=== PATIENT | female | born 1955 | race African-American/Black ===

== ENCOUNTER 2017-01-27 17:27 | Emergency (ER) | payer OTHER ==
[2017-01-27 18:03] VITALS: TEMP 98.3; BMI 25.8
[2017-01-27] MEDS ORDERED: diazePAM 5 MG TABLET PO ONE (18:37)
[2017-01-27] MEDS ORDERED: KETOROLAC TROMETHAMINE 60 MG/2 ML VIAL IM ONE (18:37)
--- NOTE | 2017-01-27 18:37 | PDOC ---
[id number] No Limitations - History of Present Illness Initial Comments: 01/27/17 18:52 The patient is a 62 year old female, with a significant past medical history of slipped discs, vertigo, asthma, hypertension, and hyperlipidemia, who presents to the emergency department with back pain for the past 3 days, which exacerbated today. She describes her back as localized on the lower left back, moderate in severity, with radiation down her left lower extremity. She notes that certain movements such as bending over exacerbate her pain, as well as walking. She states that she was walking a few days ago with her family member, which is when the pain started. She denies any fall or trauma. She denies any urinary or bowel incontinence. The patient denies chest pain, shortness of breath, headache and dizziness. Denies fever, chills, nausea, vomit, diarrhea and constipation. Denies dysuria, frequency, urgency and hematuria. Allergies: Gabapentin Past surgical history: Cholecystectomy Social history: Rare alcohol use. Cigarette use (5 daily). No drug use reported. <Blake Terrazas - Last Filed: 01/27/17 18:52> - General History Source: Patient Exam Limitations: No Limitations <Praful Minor - Last Filed: 01/31/17 09:22> - General Chief Complaint: Back Pain Stated Complaint: BACK PAIN Time Seen by Provider: 01/27/17 17:44 Past History <Blake Terrazas - Last Filed: 01/27/17 18:52> - Past Medical History Asthma: Yes Cancer: No Cardiac Disorders: No CVA: No COPD: No Diabetes: No GI Disorders: Yes (GERD) Disorders: No HTN: Yes Hypercholesterolemia: Yes Liver Disease: No Seizures: No Thyroid Disease: No - Surgical History Cholecystectomy: Yes (12/2011) - Immunization History Immunization Up to Date: Yes - Psycho/Social/Smoking Cessation Hx Anxiety: No Suicidal Ideation: No Smoking Status: No Smoking History: Smoker current status UNK Have you smoked in the past 12 months: No Number of Cigarettes Smoked Daily: 20 Information on smoking cessation initiated: No 'Breaking Loose' booklet given: 08/07/16 Hx Alcohol Use: No Drug/Substance Use Hx: No Substance Use Type: Cocaine, Marijuana Hx Substance Use Treatment: No ([facility] 10 yrs ago) <Praful Minor - Last Filed: 01/31/17 09:22> - Past Medical History Allergies/Adverse Reactions: Allergies Allergy/AdvReac Type Severity Reaction Status Date / Time gabapentin AdvReac Mild Swelling Verified 01/27/17 18:03 Home Medications: Ambulatory Orders Atorvastatin Ca [Lipitor] 80 mg PO HS 07/26/14 Cholecalciferol (Vitamin D3) [Vitamin D3] 50,000 unit PO WEEKLY 01/09/16 Zolpidem Tartrate [Ambien] 10 mg PO HS 01/09/16 Diphenhydramine HCl [Benadryl -] 25 mg PO BID PRN #30 capsule MDD 2 05/10/16 Amlodipine Besylate [Norvasc -] 2.5 mg PO DAILY 06/28/16 Cyanocobalamin [Vitamin B12 -] 1,000 mcg PO DAILY 08/07/16 Famotidine [Pepcid] 40 mg PO HS 08/07/16 Omeprazole 20 mg PO DAILY PRN 08/07/16 Meclizine HCl [Antivert -] 12.5 mg PO TID PRN #90 tablet MDD 3 11/06/16 Oxycodone HCl/Acetaminophen [Percocet 10-325 mg Tablet] 1 each PO TID #90 tablet MDD 3 01/03/17 Ibuprofen 800 mg PO TID #30 tablet 01/27/17 Methocarbamol [Robaxin -] 750 mg PO Q8H #30 tablet 01/27/17 Trauma Specific PMHX - Complaint Specific PMHX Arthritis: Yes <Praful Minor - Last Filed: 01/31/17 09:22> Review of Systems - Review of Systems Able to Perform ROS?: Yes Comments:: 01/27/17 18:52 CONSTITUTIONAL: No reported: Fever, Chills, Diaphoresis, Generalized Weakness, Malaise, Loss of Appetite HEENT: No reported: Rhinorrhea, Nasal Congestion, Throat Pain, Throat Swelling, Difficulty Swallowing, Mouth Swelling, Ear Pain, Eye Pain, Visual Changes CARDIOVASCULAR: No reported: Chest Pain, Syncope, Palpitations, Irregular Heart Rate, Lightheadedness, Peripheral Edema RESPIRATORY: No reported: Cough, Shortness of Breath, SOB with Exertion, Orthopnea, Wheezing , Stridor, Hemoptysis GASTROINTESTINAL: No reported: Abdominal pain, Abdominal Distension, Nausea, Vomiting, Diarrhea, Constipation, Melena, Hematochezia GENITOURINARY: No reported: Dysuria, Frequency, Urgency, Hesitancy, Flank Pain, Genital Pain MUSCULOSKELETAL: Reported: Back pain. No reported: Myalgia, Arthralgia, Joint Swelling, Neck Pain SKIN: No reported: Rash, Itching, Pallor HEMEATOLOGIC/IMMUNOLOGIC: No reported: Easy Bleeding, Easy Bruising, Lymphadenopathy, Frequent infections ENDOCRINE: No reported: Unexplained Weight Gain, Unexplained Weight Loss, Heat Intolerance , Cold Intolerance NEUROLOGIC: No reported: Headache, Focal Weakness, Paresthesias, Vertigo, Lightheadedness, Unsteady Gait, Seizure, Mental Status Changes, Incontinence PSYCHIATRIC: No reported: Anxiety, Depression <Blake Terrazas - Last Filed: 01/27/17 18:52> *Physical Exam - Vital Signs Last Vital Signs Temp Pulse Resp BP Pulse Ox 98.3 F 63 18 122/54 98 01/27/17 17:30 01/27/17 17:30 01/27/17 17:30 01/27/17 17:30 01/27/17 17:30 - Physical Exam Comments: 01/27/17 18:53 GENERAL: The patient is awake, alert, and fully oriented, Nontoxic - in no acute distress. HEAD: Normocephalic, atraumatic. EYES: extraocular movements intact, sclera anicteric, conjunctiva clear. ENT: Normal voice, Moist mucous membranes. NECK: Normal range of motion, supple LUNGS: Breath sounds equal, clear to auscultation bilaterally. No wheezes, no rhonchi, no rales. HEART: Regular rate and rhythm, without murmur, rub or gallop. ABDOMEN: Soft, nontender, normoactive bowel sounds. No guarding, no rebound.No CVA tenderness EXTREMITIES: Normal range of motion, no edema. No clubbing or cyanosis. No cords, erythema, or tenderness. NEUROLOGICAL: No facial assymetry, Normal speech, sensation intact in the distal extremities, dorsal/plantar flexion intact and symmetric., antalgic gait PSYCH: Normal mood, normal affect. SKIN: Warm, Dry, normal turgor BACK: tenderness noted in the L lumbar region and L ubttock that reproduced her sciatcia sypmtoms. +SLR LLE to 45 degrees <Blake Terrazas - Last Filed: 01/27/17 18:52> - Vital Signs Last Vital Signs Temp Pulse Resp BP Pulse Ox 98.3 F 63 18 122/54 98 01/27/17 17:30 01/27/17 17:30 01/27/17 17:30 01/27/17 17:30 01/27/17 17:30 <Praful Minor - Last Filed: 01/31/17 09:22> Medical Decision Making - Medical Decision Making 01/27/17 18:38 62y F hx of htn, hl, asthma, vertigo, back problems presents with complaint of worsening backpain x 4 days, pt states pain is in the L back and radiates down to the L leg, no associated numbeness/tingling/weakness, urinary or bowel incontinence,fever/chills, recent trauma. on exam pt has focal tenderness in the L buttock and Lumbar region that worsend her sypmtoms. suspect sciatica, no signs of cord compression will obtain xray of Lumbar region will give toradol/valium will ck her UA A portion of this note was documented by scribe services under my direction. I have reviewed the details of the note, within reason, and agree with the documentation with the following case summary and management plan written by me 01/27/17 19:15 Pt signed out to dr jewell to fu with xrays and reassess the patient. <Praful Minor - Last Filed: 01/31/17 09:22> *DC/Admit/Observation/Transfer - Attestations Scribe Attestion: 01/27/17 18:53 Documentation prepared by Blake Terrazas, acting as medical review coordinator for Praful Minor MD <Blake Terrazas - Last Filed: 01/27/17 18:52> <Praful Minor - Last Filed: 01/31/17 09:22> Diagnosis at time of Disposition: Chronic pain, Spinal stenosis of lumbar region - Discharge Dispostion Disposition: HOME - Prescriptions Prescriptions: Ibuprofen 800 mg PO TID #30 tablet Methocarbamol [Robaxin -] 750 mg PO Q8H #30 tablet - Referrals Referrals: Ebonie Mandujano MD [Primary Care Provider] - - Patient Instructions Printed Discharge Instructions: DI for Low Back Pain
[2017-01-27] MEDS ORDERED: KETOROLAC TROMETHAMINE 60 MG/2 ML VIAL ONE (19:54)
[2017-01-27] MEDS ORDERED: diazePAM 5 MG TABLET ONE (19:55)
[2017-01-27 20:43] LABS: URINE APPEARANCE CLEAR; URINE BILIRUBIN NEGATIVE (NEGATIVE); URINE BLOOD NEGATIVE (NEGATIVE); URINE COLOR STRAW; URINE GLUCOSE (UA) NEGATIVE (NEGATIVE); URINE KETONE NEGATIVE (NEGATIVE); URINE LEUK ESTERASE NEGATIVE (NEGATIVE); URINE NITRITE NEGATIVE (NEGATIVE); URINE PROTEIN NEGATIVE (NEGATIVE); URINE UROBILINOGEN NEGATIVE E.U./dl (0.2-1.0)
--- NOTE | 2017-01-27 22:31 | PDOC ---
*Physical Exam - Vital Signs Last Vital Signs Temp Pulse Resp BP Pulse Ox 98.3 F 63 18 122/54 98 01/27/17 17:30 01/27/17 17:30 01/27/17 17:30 01/27/17 17:30 01/27/17 17:30 ED Treatment Course - ADDITIONAL ORDERS Additional order review: Laboratory Results 01/27/17 20:00 Urine Color Straw Urine Appearance Clear Urine pH 7.0 D Urine Protein Negative Urine Glucose (UA) Negative Urine Ketones Negative Urine Blood Negative Urine Nitrite Negative Urine Bilirubin Negative Urine Urobilinogen Negative Ur Leukocyte Esterase Negative - Medications Given in the ED: ED Medications Discontinued Medications Generic Name Dose Route Start Last Admin Trade Name Freq PRN Reason Stop Dose Admin Diazepam 5 mg 01/27/17 18:37 01/27/17 20:00 Valium - PO 01/27/17 18:38 5 mg ONCE ONE Administration Ketorolac Tromethamine 60 mg 01/27/17 18:37 01/27/17 20:00 Toradol Injection - IM 01/27/17 18:38 60 mg ONCE ONE Administration *DC/Admit/Observation/Transfer Diagnosis at time of Disposition: Chronic pain, Spinal stenosis of lumbar region - Discharge Dispostion Disposition: HOME Condition at time of disposition: Stable Admit: No - Referrals Referrals: Ebonie Mandujano MD [Primary Care Provider] - - Patient Instructions Printed Discharge Instructions: DI for Low Back Pain - Post Discharge Activity
[2017-01-27 22:37] VITALS: BP 118/69; PULSE 68
== END 2017-01-27 22:37 | disposition home or self-care (01) ==
LOC: JER 17:27
PROC: 3E0233Z Introduction of Anti-inflammatory into Muscle, Percutaneous Approach (ICD-10-PCS; principal; 2017-01-27)
DX: M48.06 Spinal stenosis, lumbar region (principal); R42 Dizziness and giddiness; J45.909 Unspecified asthma, uncomplicated; I10 Essential (primary) hypertension; E78.00 Pure hypercholesterolemia, unspecified; F17.210 Nicotine dependence, cigarettes, uncomplicated
CPT/HCPCS: 72100-TC; 81003; 87086; 96372; 99281-25

== ENCOUNTER → 2017-02-26 | Day surgery (SDC) | payer OTHER ==
--- NOTE | 2017-02-28 12:32 | PATH ---
Cytology Non-Gynecological Report Patient Name: BENJAMIN CUMMINGS [facility]. Rec. #: [id number] /Age/Gender: 1955 (Age: 62) / F Account: [id number] Location: RADIOLOGY Taken: 02/26/2017 Received: 02/26/2017 Reported: 02/28/2017 Physicians: Fatoumata Stephenson Specimen(s) Received LEFT THYROID FNA Clinical History Left thyroid nodule, 2.92 x 2.50 x 1.55 cm Final Diagnosis THYROID GLAND, LEFT LOBE, US GUIDED FINE NEEDLE ASPIRATION BIOPSY: SATISFACTORY FOR EVALUATION. CONSISTENT WITH FOLLICULAR LESION OF UNDETERMINED SIGNIFICANCE (FLUS, [place] CATEGORY III), SEE COMMENT. Comment: The smears and the cell block show clusters of follicular epithelial cells with marked predominance of Hurthle (oncocytic) cells arranged in mixed macro-and microfollicles and flat sheets. Colloid is present. The findings are best classified as follicular lesion of undetermined significance (FLUS, [place] category III). Follow up according to [place] guidelines is suggested. Electronically Signed Wesly Walker M.D. Gross Description Received are four air dried smears, four smears in 95% alcohol, and 20 cc of bloody fluid in formalin. Four diff-quik stained slides, four Pap stained slides and one cell block are made.
== END | disposition home or self-care (01) ==
LOC: JRADIR 07:50
PROVIDERS: ATTEND Family Medicine
PROC: 0GBG3ZX Excision of Left Thyroid Gland Lobe, Percutaneous Approach, Diagnostic (ICD-10-PCS; principal; 2017-02-26)
PROC: BG44ZZZ Ultrasonography of Thyroid Gland (ICD-10-PCS; 2017-02-26)
DX: E04.1 Nontoxic single thyroid nodule (principal)
CPT/HCPCS: 76942; 88173; 88305-TC

== ENCOUNTER 2017-04-19 13:25 | Emergency (ER) | payer OTHER ==
[2017-04-19 13:34] VITALS: BP 102/55; PULSE 67; TEMP 98.1; BMI 31.4
--- NOTE | 2017-04-19 14:38 | PDOC ---
History of Present Illness - General Chief Complaint: Pain Stated Complaint: CAST REMOVAL Time Seen by Provider: 04/19/17 13:58 History Source: Patient Exam Limitations: No Limitations - History of Present Illness Initial Comments: 04/19/17 14:41 My Chief Complaint: tingling rt. wrist area, distal forearm, irritation of skin rt. proximal thumb History of present illness: She is a 62-year-old female here today with a history of hypertension, GERD, chronic pain knees hips, back, hyperlipidemia was sleep apnea, vertigo, obesity, and history of substance abuse and a history of a questionable subtle distal radial fracture noted on x-ray that was done here on 03/21/2017. Patient according to record had a cast applied on 2016 to her right wrist. Patient is here today reporting that she was told to come here by her pain management provider, shows that she was last seen by this provider on 04/04/17.She was advised to follow up with orthopedist Dr. Ospina or go to the emergency room for cast removal due to tingling of rt. wrist area and irritation of rt. proximal thumb area. Patient was told that orthopedist had to be consulted that was electronic organ technician here patient became agitated insisting cast removal and patient stated "I will go home and put it under hot water remove it myself". Occurred: reports: other (03/28/17 cast applied rt wrist) Severity: reports: moderate (tingling, irritation rt. wrist ) Upper Extremity Pain Location: right: wrist (irritation of skin, tingling of rt. forearm) Method of Injury: reports: fell (03/21/17) Extremity Pain Location - Extremity Pain Location Extremity Pain Locations: right: other (lateral wrist) Past History - Past Medical History Allergies/Adverse Reactions: Allergies Allergy/AdvReac Type Severity Reaction Status Date / Time gabapentin AdvReac Mild Swelling Verified 04/19/17 13:34 Home Medications: Ambulatory Orders Atorvastatin Ca [Lipitor] 80 mg PO HS 07/26/14 Cholecalciferol (Vitamin D3) [Vitamin D3] 50,000 unit PO WEEKLY 01/09/16 Zolpidem Tartrate [Ambien] 10 mg PO HS 01/09/16 Diphenhydramine HCl [Benadryl -] 25 mg PO BID PRN #30 capsule MDD 2 05/10/16 Amlodipine Besylate [Norvasc -] 2.5 mg PO DAILY 06/28/16 Cyanocobalamin [Vitamin B12 -] 1,000 mcg PO DAILY 08/07/16 Famotidine [Pepcid] 40 mg PO HS 08/07/16 Omeprazole 20 mg PO DAILY PRN 08/07/16 Meclizine HCl [Antivert -] 12.5 mg PO TID PRN #90 tablet MDD 3 11/06/16 Ibuprofen 800 mg PO TID #30 tablet 01/27/17 Methocarbamol [Robaxin -] 750 mg PO Q8H #30 tablet 01/27/17 Oxycodone HCl/Acetaminophen [Percocet 10-325 mg Tablet] 1 each PO QID #100 tablet MDD 4 04/04/17 Asthma: Yes Cancer: No Cardiac Disorders: No CVA: No COPD: No Diabetes: No GI Disorders: Yes (GERD) Disorders: No HTN: Yes Hypercholesterolemia: Yes Liver Disease: No Seizures: No Thyroid Disease: No Other medical history: DISC BACK PROBLEMS - Surgical History Cholecystectomy: Yes (12/2011) - Immunization History Immunization Up to Date: Yes - Psycho/Social/Smoking Cessation Hx Anxiety: No Suicidal Ideation: No Smoking Status: No Smoking History: Current every day smoker Have you smoked in the past 12 months: No Number of Cigarettes Smoked Daily: 7 Information on smoking cessation initiated: Yes 'Breaking Loose' booklet given: 04/19/17 Hx Alcohol Use: Yes (SOCIAL) Drug/Substance Use Hx: No Substance Use Type: None Hx Substance Use Treatment: No ([facility] 10 yrs ago) Review of Systems - Review of Systems Able to Perform ROS?: Yes Constitutional: No: Symptoms Reported HEENTM: No: Symptoms Reported Respiratory: No: Symptoms reported Cardiac (ROS): No: Symptoms Reported ABD/GI: No: Symptoms Reported : No: Symptoms Reported Musculoskeletal: Yes: Joint Pain (forearm proximal ). No: Joint Swelling Integumentary: No: Symptoms Reported Neurological: Yes: Tingling (rt. wrist) *Physical Exam - Vital Signs Last Vital Signs Temp Pulse Resp BP Pulse Ox 98.1 F 67 20 102/55 98 04/19/17 13:31 04/19/17 13:31 04/19/17 13:31 04/19/17 13:31 04/19/17 13:31 - Physical Exam General Appearance: Yes: Appropriately Dressed Extremity: positive: Normal Capillary Refill, Other (cast on rt. wrist). negative: Normal Range of Motion (right w), Swelling Integumentary: positive: Other (skin irritation rt. 1st mcp jt proximal aspect) Neurologic: positive: Normal Response (fingers rt. hand ), Respond to painful stimul (rt.hand fingers), Sensory Deficit (? sensory deficit rt wrist area ( c/ o tingling) ). negative: Numbness (rt hand fingers) Medical Decision Making - Medical Decision Making 04/19/17 14:48 She is a 62-year-old female here today with a history of hypertension, GERD, chronic pain knees hips, back, hyperlipidemia was sleep apnea, vertigo, obesity , and history of substance abuse and a history of a questionable subtle distal radial fracture noted on x-ray that was done here on 03/21/2017. Patient according to record had a cast applied on 03/28/2017 to her right wrist. Patient is here today reporting that she was told to come here by her pain management provider, shows that she was last seen by this provider on .She was advised to follow up with orthopedist Dr. Ospina or go to the emergency room for cast removal due to tingling of rt. wrist area and irritation of rt. proximal thumb area. Patient was told that orthopedist had to be consulted that was electronic organ technician here patient became agitated insisting cast removal and patient stated "I will go home and put it under hot water remove it myself". CAST IRRITATION TO RT. PROXIMAL MCP JT TINGLING RT. WRIST AREA PLAN: CONSULT WITH ORTHO FOURTH MATE TO DR. DIAL THAN CANCELLED DUE PT. BECOMING IRRITATED THAT THIS WAS NEEDED AND PT. THAN ELOPED *DC/Admit/Observation/Transfer Diagnosis at time of Disposition: Eloped - Discharge Dispostion Disposition: ELOPED Condition at time of disposition: Unchanged/Unknown - Referrals Referrals: Ebonie Mandujano MD [Primary Care Provider] -
== END 2017-04-19 14:38 | disposition left against medical advice (07) ==
LOC: JERFT 13:25
DX: Z47.89 Encounter for other orthopedic aftercare (principal)
CPT/HCPCS: 99281-25

== ENCOUNTER 2018-11-05 21:30 | Emergency (ER) | payer OTHER ==
--- NOTE | 2018-11-05 21:50 | PDOC ---
Attending Attestation - [facility] HPI: 11/05/18 22:39 The patient is a 63 year old female with a significant PMH of slipped discs, vertigo, asthma, hypertension, and hyperlipidemia who presents to the emergency department with lower abdominal pain today. Patient describes the abdominal pain as sharp and nonradiating. Patient is also complaining of associated foul smelling urine and nausea. Denies history of UTIs in the past. The patient denies chest pain, shortness of breath, headache and dizziness. Denies fever, chills, vomit, diarrhea and constipation. Denies dysuria, frequency, urgency and hematuria. Allergies: NKA Past surgical history: None reported. Social history: No reported alcohol, drug or cigarette use.
[2018-11-05 21:51] VITALS: BMI 29.0
[2018-11-05] MEDS ORDERED: ACETAMINOPHEN 1000 MG/100 ML VIAL (NON FORMULARY) IVPB ONE (22:07)
[2018-11-05] MEDS ORDERED: ACETAMINOPHEN INJECTION 100 ML IVPB ONE (22:26)
[2018-11-05] MEDS ORDERED: MECLIZINE HCL 25 MG TABLET (FP) PO ONE (22:36)
[2018-11-05] MEDS ORDERED: MECLIZINE HCL 25 MG TABLET (FP) ONE (22:46)
[2018-11-05 22:48] LABS: URINE APPEARANCE SLCLOUDY; URINE BILIRUBIN NEGATIVE (<2.0 mg/dL); URINE COLOR YELLOW; URINE GLUCOSE (UA) NEGATIVE (NEGATIVE); URINE KETONE NEGATIVE (NEGATIVE); URINE LEUK ESTERASE NEGATIVE (NEGATIVE); URINE NITRITE NEGATIVE (NEGATIVE); URINE PROTEIN NEGATIVE (NEGATIVE)
--- NOTE | 2018-11-05 22:53 | PDOC ---
History of Present Illness - General Chief Complaint: Pain, Acute Stated Complaint: Pain Time Seen by Provider: 11/05/18 21:49 - History of Present Illness Initial Comments: 11/05/18 22:53 63-year-old female here today with a history of hysterectomy, cholecystectomy hypertension, GERD, chronic pain knees hips, back, hyperlipidemia was sleep apnea, vertigo, obesity, and history of substance abuse presents to the ed for left lower flank pain radiating from the back to the urethra, worsening on urination. Past History - Past Medical History Allergies/Adverse Reactions: Allergies Allergy/AdvReac Type Severity Reaction Status Date / Time gabapentin AdvReac Mild Swelling Verified 11/05/18 21:50 Home Medications: Ambulatory Orders Atorvastatin Ca [Lipitor] 10 mg PO HS 07/26/14 Diphenhydramine HCl [Benadryl -] 25 mg PO BID PRN #30 capsule MDD 2 05/10/16 Famotidine [Pepcid] 40 mg PO HS 08/07/16 Omeprazole 20 mg PO DAILY PRN 08/07/16 Methocarbamol [Robaxin -] 750 mg PO Q8H #30 tablet 05/28/18 Meclizine HCl [Antivert -] 12.5 mg PO BID #60 tablet MDD 0 06/24/18 Polyethylene Glycol 3350 [Miralax (For Bowel Prep) -] 17 gm PO DAILY 06/24/18 Ibuprofen 800 mg PO BID PRN #30 tablet 08/26/18 Cyanocobalamin [Vitamin B12 -] 1,000 mcg PO DAILY #30 tablet 09/24/18 Diclofenac Sodium [Voltaren] 2 gm TP TID PRN #3 tube 09/24/18 Ergocalciferol [Vitamin D2] 50,000 unit PO Q7D@1000 #4 capsule 09/24/18 Multivitamin [Multiple Vitamins] 1 each PO DAILY #30 tablet 09/24/18 Oxycodone HCl/Acetaminophen [Percocet 10-325 mg Tablet] 1 each PO TID PRN #90 tablet MDD 3 10/23/18 Ciprofloxacin [Cipro -] 500 mg PO Q12H 7 Days #14 tablet 11/06/18 Metronidazole 500 mg PO TID 7 Days #21 tablet 11/06/18 Asthma: Yes Cancer: No Cardiac Disorders: Yes (intermittent irregular heart beat) CVA: No COPD: No Diabetes: No GI Disorders: Yes (GERD) Disorders: No HTN: Yes Hypercholesterolemia: Yes Liver Disease: No Seizures: No Thyroid Disease: No - Surgical History Cholecystectomy: Yes (12/2011) Orthopedic Surgery: Yes (left wrist fracture - casted 03/21/17) - Immunization History Immunization Up to Date: Yes - Suicide/Smoking/Psychosocial Hx Smoking Status: No Smoking History: Never smoked Have you smoked in the past 12 months: No Number of Cigarettes Smoked Daily: 7 Information on smoking cessation initiated: No 'Breaking Loose' booklet given: 04/19/17 Hx Alcohol Use: No Drug/Substance Use Hx: No Substance Use Type: Marijuana Hx Substance Use Treatment: No ([facility] 10 yrs ago) Review of Systems - Review of Systems Able to Perform ROS?: Yes Is the patient limited Divehi proficient: No Constitutional: No: Symptoms Reported HEENTM: No: Symptoms Reported Respiratory: No: Symptoms reported Cardiac (ROS): No: Symptoms Reported ABD/GI: Yes: See HPI : Yes: See HPI Musculoskeletal: No: Symptoms Reported Integumentary: No: Symptoms Reported All Other Systems: Reviewed and Negative *Physical Exam - Vital Signs Last Vital Signs Temp Pulse Resp BP Pulse Ox 98.6 F 94 H 18 132/68 98 11/05/18 21:50 11/05/18 21:50 11/05/18 21:50 11/05/18 21:50 11/05/18 21:50 - Physical Exam General Appearance: Yes: Moderate Distress, Obese HEENT: positive: Other (missing her right eye (arrow accident) halitosis) Respiratory/Chest: positive: Lungs Clear, Normal Breath Sounds. negative: Chest Tender, Respiratory Distress Cardiovascular: positive: Regular Rhythm, Regular Rate, S1, S2 Gastrointestinal/Abdominal: positive: Normal Bowel Sounds, Tender (lrq), Protuberent Extremity: positive: Normal Capillary Refill, Normal Inspection, Normal Range of Motion Integumentary: positive: Normal Color, Warm Neurologic: positive: Fully Oriented, Alert, Normal Mood/Affect Moderate Sedation - Procedure Monitoring Vital Signs: Procedure Monitoring Vital Signs Temperature 98.6 F 11/05/18 21:50 Pulse Rate 94 H 11/05/18 21:50 Respiratory Rate 18 11/05/18 21:50 Blood Pressure 132/68 11/05/18 21:50 O2 Sat by Pulse Oximetry (%) 98 11/05/18 21:50 ED Treatment Course - LABORATORY CBC & Chemistry Diagram: 11/05/18 22:53 11/05/18 22:53 - Medications Given in the ED: ED Medications Discontinued Medications Generic Name Dose Route Start Last Admin Trade Name Kyung PRN Reason Stop Dose Admin Acetaminophen 1,000 mg 11/05/18 22:07 11/05/18 22:44 Ofirmev Injection - IVPB 11/05/18 22:08 1,000 mg ONCE ONE Administration Meclizine HCl 25 mg 11/05/18 22:36 11/05/18 22:48 Antivert - PO 11/05/18 22:37 25 mg ONCE ONE Administration Medical Decision Making - Medical Decision Making 11/05/18 23:34 63F with pmh of obesity, htn, cholecystectomy and hysterectomy presenting with left flank pain and dysuria. Renal stone vs pyelonephtitis vs UTi vs adhesions vs mesenteric ischemia. Will obtain ua, basic labs and lactate. Blood xkhio0wn in urine. Getting Ct spiral renal to r/o stones. Will treat for infection if urine shows signs of infection. 11/06/18 00:07 Ct abd/pelv positive for signmoid diverticulitis. Will treat out patient due to the pact that patient';s vitals are stable, she tolerates PO can ambulate and is not immunocompromised. Cipro and metronidazol for abx. Can discharge after IV fluid admission with GI follow up. *DC/Admit/Observation/Transfer Diagnosis at time of Disposition: Diverticulitis - Discharge Dispostion Disposition: HOME Condition at time of disposition: Improved Decision to Admit order: No - Prescriptions Prescriptions: Ciprofloxacin [Cipro -] 500 mg PO Q12H 7 Days #14 tablet Metronidazole 500 mg PO TID 7 Days #21 tablet - Referrals Referrals: John Patel MD [Staff Physician] - - Patient Instructions Printed Discharge Instructions: DI for Diverticulitis Additional Instructions: electronics supervisor prescription from pharmacy and take antibiotics are prescribed. Follow up with Dr. Patel, Chief Security And Safety Officer, within the next 3-4 days. Come back to the emergency department for any new, worsening or concerning symptoms. - Post Discharge Activity
[2018-11-05 22:58] LABS: BASO % 0.6 % (0-2.0); EOS % 0.4 % (0-4.5); HEMATOCRIT 40.4 % (32.4-45.2); HEMOGLOBIN 13.9 GM/dL (10.7-15.3); MCH 30.5 pg (25.7-33.7); MCHC 34.5 g/dl (32.0-36.0); MEAN CELL VOLUME 88.4 fl (80-96); MEAN PLT VOLUME 8.7 fl (7.5-11.1); MONO % 8.6 % (3.8-10.2); NEUT % 71.4 % (42.8-82.8); PLATELET COUNT 337 K/MM3 (134-434); RBC 4.58 M/mm3 (3.60-5.2); RDW 13.6 % (11.6-15.6); WHITE BLOOD COUNT 15.1 K/mm3 (4.0-10.0)
[2018-11-05 23:05] LABS: EPI CELLS RARE /HPF (FEW); URINE BACTERIA RARE /hpf (NONE SEEN); URINE MUCUS RARE
[2018-11-05 23:26] LABS: ALBUMIN 3.4 g/dl (3.4-5.0); ALK PHOS 111 U/L (45-117); ANION GAP 4 MMOL/L (8-16); BILIRUBIN,TOTAL 0.5 mg/dL (0.2-1); BLOOD UREA NITROGEN 12 mg/dL (7-18); CALCIUM 8.8 mg/dL (8.5-10.1); CHLORIDE 104 mmol/L (98-107); CO2 30 mmol/L (21-32); CREATININE 0.9 mg/dL (0.55-1.3); GLUCOSE,RANDOM 108 mg/dL (74-106); POTASSIUM 4.2 mmol/L (3.5-5.1); SGOT/AST 11 U/L (15-37); SGPT/ALT 15 U/L (13-61); SODIUM 138 mmol/L (136-145)
[2018-11-05] MEDS ORDERED: CIPROFLOXACIN 500 MG TABLET (RESTRICTED TO ID) PO ONE (23:59)
[2018-11-05] MEDS ORDERED: metroNIDAZOLE 500 MG TABLET PO ONE (23:59)
[2018-11-06] MEDS ORDERED: SODIUM CHLORIDE 1,000 ML IV STA
[2018-11-06] MEDS ORDERED: metroNIDAZOLE 250 MG TABLET ONE (00:04)
[2018-11-06 00:56] VITALS: BP 121/63; PULSE 74; TEMP 99.2
== END 2018-11-06 00:59 | disposition home or self-care (01) ==
LOC: JER 21:30
PROC: 3E0337Z Introduction of Electrolytic and Water Balance Substance into Peripheral Vein, Percutaneous Approach (ICD-10-PCS; principal; 2018-11-05)
PROC: 3E033NZ Introduction of Analgesics, Hypnotics, Sedatives into Peripheral Vein, Percutaneous Approach (ICD-10-PCS; 2018-11-05)
DX: K57.92 Diverticulitis of intestine, part unspecified, without perforation or abscess without bleeding (principal); I10 Essential (primary) hypertension; K21.9 Gastro-esophageal reflux disease without esophagitis; M25.552 Pain in left hip; M25.551 Pain in right hip; M25.561 Pain in right knee; M25.562 Pain in left knee; E78.00 Pure hypercholesterolemia, unspecified; Z87.09 Personal history of other diseases of the respiratory system
CPT/HCPCS: 36415; 74176; 80053; 81003; 81015; 83605; 85025; 87086; 99282-25; J0131; J7030

== ENCOUNTER 2019-05-09 17:50 | Emergency (ER) | payer OTHER ==
[2019-05-09 18:16] VITALS: BP 120/76; PULSE 63; TEMP 98.1; BMI 36.3
--- NOTE | 2019-05-09 18:18 | PDOC ---
History of Present Illness - General Chief Complaint: Pain Stated Complaint: RIGHT FOOT PAIN History Source: Patient Exam Limitations: No Limitations - History of Present Illness Initial Comments: 05/09/19 18:16 Patient is a 64 year old female with h/o OA, preDM, HTN, HLD, environmental allergies, gastritis, SERGIO, thyroidectomy c/o right heal pain x 1 month worsened yesterday now has pain 9/10 worse with walking/standing on it. Patient states she had been wearing some cheap shoes to the park which she thinks cause the the pain. PMD: [address] PMHX: as above PSOCHX: neg etoh, durg, cig ALL: gabapentin GENERAL/CONSTITUTIONAL: No fever or chills. No weakness. No weight change. HEAD, EYES, EARS, NOSE AND THROAT: No change in vision. No ear pain or discharge. No sore throat. CARDIOVASCULAR: No chest pain or shortness of breath. RESPIRATORY: No cough, wheezing, or hemoptysis. GASTROINTESTINAL: No nausea, vomiting, diarrhea or constipation. No rectal bleeding. GENITOURINARY: No dysuria, frequency, or change in urination. MUSCULOSKELETAL: No joint or muscle swelling or pain. No neck or back pain. SKIN AND BREASTS: No rash or easy bruising. NEUROLOGIC: No headache, vertigo, loss of consciousness, or loss of sensation. PSYCHIATRIC: No depression or anxiety. ENDOCRINE: No increased thirst. No abnormal weight change. HEMATOLOGIC/LYMPHATIC: No anemia, easy bleeding, or history of blood clots. ALLERGIC/IMMUNOLOGIC: No hives or skin allergy. No latex allergy. GENERAL: The patient is awake, alert, and fully oriented, in no acute in mild distress. HEAD: Normal with no signs of trauma. EYES: Pupils equal, round and reactive to light, extraocular movements intact, sclera anicteric, conjunctiva clear. ENT: Ears normal, nares patent, oropharynx clear without exudates. Moist mucous membranes. NECK: Normal range of motion, supple without lymphadenopathy, JVD, or masses. LUNGS: Breath sounds equal, clear to auscultation bilaterally. No wheezes, and no crackles. HEART: Regular rate and rhythm, normal S1 and S2 without murmur, rub. ABDOMEN: Soft, nontender, normoactive bowel sounds. No guarding, no rebound. No masses. EXTREMITIES: Normal range of motion ankle, no edema. Tenderness over the heel non tenderness midline, No clubbing or cyanosis. No cords, erythema, or tenderness. NEUROLOGICAL: Cranial nerves II through XII grossly intact. Normal speech, normal gait. PSYCH: Normal mood, normal affect. SKIN: Warm, Dry, normal turgor, no rashes or lesions noted. Past History - Past Medical History Allergies/Adverse Reactions: Allergies Allergy/AdvReac Type Severity Reaction Status Date / Time gabapentin AdvReac Mild Swelling Verified 05/09/19 18:15 Home Medications: Ambulatory Orders Atorvastatin Ca [Lipitor] 10 mg PO HS 07/26/14 Diphenhydramine HCl [Benadryl -] 25 mg PO BID PRN #30 capsule MDD 2 05/10/16 Famotidine [Pepcid] 40 mg PO HS 08/07/16 Omeprazole 20 mg PO DAILY PRN 08/07/16 Meclizine HCl [Antivert -] 12.5 mg PO BID #60 tablet MDD 0 06/24/18 Polyethylene Glycol 3350 [Miralax (For Bowel Prep) -] 17 gm PO DAILY 06/24/18 Ibuprofen 800 mg PO BID PRN #30 tablet 08/26/18 Varenicline Tartrate [Chantix] 1 each PO ASDIR #1 tab.ds.pk 12/18/18 Acetaminophen 500 mg PO BID PRN #60 tablet 03/15/19 Diclofenac Sodium [Voltaren] 2 gm TP TID PRN #3 tube 03/15/19 Cyanocobalamin [Vitamin B12 -] 1,000 mcg PO DAILY #30 tablet 04/14/19 Ergocalciferol [Vitamin D2] 50,000 unit PO Q7D@1000 #4 capsule 04/14/19 Multivitamin [Multiple Vitamins] 1 each PO DAILY #30 tablet 04/14/19 Oxycodone HCl/Acetaminophen [Percocet 10-325 mg Tablet] 1 each PO TID PRN #85 tablet MDD 3 04/14/19 Methocarbamol [Robaxin -] 750 mg PO Q8H #30 tablet 04/21/19 Lidocaine 5% Patch [Lidoderm Patch -] 1 patch TP DAILY #7 patch 05/09/19 Asthma: Yes Cancer: No Cardiac Disorders: Yes (intermittent irregular heart beat) CVA: No COPD: No CHF: No Diabetes: No GI Disorders: Yes (GERD) Disorders: No HTN: Yes Hypercholesterolemia: Yes Liver Disease: No Seizures: No Thyroid Disease: No - Surgical History Cholecystectomy: Yes (12/2011) Orthopedic Surgery: Yes (left wrist fracture - casted 03/21/17) - Immunization History Td Vaccination: Yes TDAP Vaccination: Yes Immunization Up to Date: Yes - Suicide/Smoking/Psychosocial Hx Smoking Status: No Smoking History: Current every day smoker Have you smoked in the past 12 months: No Number of Cigarettes Smoked Daily: 7 'Breaking Loose' booklet given: 04/19/17 Hx Alcohol Use: No Drug/Substance Use Hx: Yes (none x 5+ years) Substance Use Type: Marijuana Hx Substance Use Treatment: No ([facility] 10 yrs ago) Medical Decision Making - Medical Decision Making 05/09/19 18:16 Patient is a 64 year old female with h/o OA, preDM, HTN, HLD, environmental allergies, gastritis, SERGIO, thyroidectomy c/o right heal pain x 1 month worsened yesterday now has pain 9/10 worse with walking/standing on it. Patient states she had been wearing some cheap shoes to the park which she thinks cause the the pain. Symptoms consistent with plantar fasciitis Percocet 2, Lidoderm patch Instructed to follow-up with podiatry. I discussed the physical exam findings, ancillary test results and final diagnoses with the patient. I answered all of the patient's questions. The patient was satisfied with the care received and felt comfortable with the discharge plan and treatment plan. The Patient agrees to follow up with the primary care physician within 24-72 hours. *DC/Admit/Observation/Transfer Diagnosis at time of Disposition: Plantar fasciitis of right foot - Discharge Dispostion Disposition: HOME Condition at time of disposition: Stable - Prescriptions Prescriptions: Lidocaine 5% Patch [Lidoderm Patch -] 1 patch TP DAILY #7 patch - Referrals - Patient Instructions Printed Discharge Instructions: DI for Plantar Fasciitis Additional Instructions: Your Discharge Instructions: You must call primary care physician within 24 hours to arrange follow-up. Return to the Emergency Department with any new, persistent or worsening symptoms, for fever, chills, SOB, dizziness or any other concerning changes that may occur. Podiatry call for an appointment. - Post Discharge Activity
[2019-05-09] MEDS ORDERED: LIDOCAINE 5% TOPICAL PATCH TP ONE (18:50)
[2019-05-09] MEDS ORDERED: LIDOCAINE 5% TOPICAL PATCH ONE (18:55)
[2019-05-09] MEDS ORDERED: LIDOCAINE PATCH REMOVAL MC SCH (22:00)
== END 2019-05-09 19:10 | disposition home or self-care (01) ==
LOC: JER 17:50
DX: M72.2 Plantar fascial fibromatosis (principal); I10 Essential (primary) hypertension; E78.5 Hyperlipidemia, unspecified; M19.90 Unspecified osteoarthritis, unspecified site; R73.03 Prediabetes; E89.0 Postprocedural hypothyroidism; J45.909 Unspecified asthma, uncomplicated; K21.9 Gastro-esophageal reflux disease without esophagitis; F17.210 Nicotine dependence, cigarettes, uncomplicated
CPT/HCPCS: 73630-TC-RT-FY; 99281-25

== ENCOUNTER 2020-08-03 10:22 | Emergency (ER) | payer OTHER ==
[2020-08-03 10:44] VITALS: BMI 29.0
[2020-08-03] MEDS ORDERED: ONDANSETRON 4 MG/2 ML VIAL IVPUSH ONE (11:15)
[2020-08-03] MEDS ORDERED: LACTATED RINGERS SOLUTION 1,000 ML/1,000 ML INFUS.BAG IV STA (11:16)
[2020-08-03 12:17] LABS: BASO % 0.5 % (0-2.0); EOS % 0.2 % (0-4.5); HEMATOCRIT 44.6 % (32.4-45.2); HEMOGLOBIN 14.5 GM/dL (10.7-15.3); LYMPH % 12.7 % (8-40); MCH 28.4 pg (25.7-33.7); MCHC 32.6 g/dl (32.0-36.0); MEAN CELL VOLUME 87.1 fl (80-96); MEAN PLT VOLUME 8.7 fl (7.5-11.1); MONO % 3.7 % (3.8-10.2); NEUT % 82.9 % (42.8-82.8); PLATELET COUNT 314 K/MM3 (134-434); RBC 5.12 M/mm3 (3.60-5.2); RDW 14.2 % (11.6-15.6); WHITE BLOOD COUNT 8.8 K/mm3 (4.0-10.0)
[2020-08-03 12:25] LABS: INR 0.9 (0.83-1.09); PROTHROMBIN TIME (PATIENT) 10.9 SEC (9.7-13.0)
[2020-08-03 12:35] LABS: POTASSIUM 4.4 mmol/L (3.5-5.1)
[2020-08-03 12:37] LABS: CALCIUM 9.6 mg/dL (8.5-10.1)
[2020-08-03 12:38] LABS: BLOOD UREA NITROGEN 16.8 mg/dL (7-18)
[2020-08-03 12:41] LABS: CREATININE 0.7 mg/dL (0.55-1.3)
[2020-08-03 12:42] LABS: BILIRUBIN,TOTAL 0.4 mg/dL (0.2-1); TOT PROT 7.9 g/dl (6.4-8.2)
[2020-08-03 13:49] LABS: EPI CELLS 22 /uL (0-25.1); HYALINE CASTS 1 /uL (0-3.1); PH,URINE 8.5 (5.0-8.0); URINE APPEARANCE CLOUDY; URINE BACTERIA 125 /uL (0-1359); URINE BILIRUBIN NEGATIVE (NEGATIVE); URINE COLOR YELLOW; URINE GLUCOSE (UA) NEGATIVE (NEGATIVE); URINE KETONE NEGATIVE (NEGATIVE); URINE LEUK ESTERASE NEGATIVE (NEGATIVE); URINE NITRITE NEGATIVE (NEGATIVE); URINE PROTEIN 1+ (NEGATIVE); URINE RBC 3635 /uL (0-23.9); URINE UROBILINOGEN 0.2 mg/dL (0.2-1.0); URINE WBC 19 /uL (0-25.8)
[2020-08-03 18:08] VITALS: BP 122/74; PULSE 78; TEMP 98
== END 2020-08-03 18:08 | disposition home or self-care (01) ==
LOC: JER 10:22
PROC: 3E033GC Introduction of Other Therapeutic Substance into Peripheral Vein, Percutaneous Approach (ICD-10-PCS; principal; 2020-08-03)
DX: N20.0 Calculus of kidney (principal)
CPT/HCPCS: 36415; 74177-TC; 80053; 81003; 85025; 85610; 85730; 86850; 86900; 86901; 93005; 93010; 99285-25; Q9967

== ENCOUNTER 2022-05-22 11:39 | Emergency (ER) | payer OTHER ==
[2022-05-22 11:52] VITALS: BP 121/67; PULSE 75; RESP 18; TEMP 98.4; BMI 38.7
[2022-05-22] MEDS ORDERED: KETOROLAC TROMETHAMINE 30 MG/1 ML VIAL IVPUSH ONE (12:08)
[2022-05-22] MEDS ORDERED: KETOROLAC TROMETHAMINE 30 MG/1 ML VIAL ONE (12:11)
[2022-05-22 12:58] LABS: BASO % 0.7 % (0-2.0); EOS % 1.2 % (0-4.5); HEMATOCRIT 44.1 % (32.4-45.2); HEMOGLOBIN 14.6 GM/dL (10.7-15.3); LYMPH % 34.6 % (8-40); MCH 28.8 pg (25.7-33.7); MCHC 33.2 g/dl (32.0-36.0); MEAN CELL VOLUME 86.9 fl (80-96); MEAN PLT VOLUME 8.6 fl (7.5-11.1); MONO % 5.7 % (3.8-10.2); NEUT % 57.8 % (42.8-82.8); PLATELET COUNT 350 10^3/uL (134-434); RBC 5.07 M/mm3 (3.60-5.2); RDW 13.3 % (11.6-15.6)
[2022-05-22 13:04] LABS: PROTHROMBIN TIME (PATIENT) 11.5 SEC (9.7-13.0)
[2022-05-22 13:35] LABS: BLOOD UREA NITROGEN 18.4 mg/dL (7-18); CALCIUM 9.4 mg/dL (8.5-10.1)
[2022-05-22 13:36] LABS: ALBUMIN 3.8 g/dl (3.4-5.0)
[2022-05-22 13:41] LABS: BILIRUBIN,TOTAL 0.7 mg/dL (0.2-1)
[2022-05-22 13:42] LABS: CREATININE 0.6 mg/dL (0.55-1.3)
[2022-05-22 13:43] LABS: TOT PROT 7.5 g/dl (6.4-8.2)
== END 2022-05-22 15:53 | disposition home or self-care (01) ==
LOC: JER 11:39 → JERFT 11:39
PROC: 3E0333Z Introduction of Anti-inflammatory into Peripheral Vein, Percutaneous Approach (ICD-10-PCS; principal; 2022-05-22)
DX: M25.512 Pain in left shoulder (principal)
CPT/HCPCS: 36415; 71046-TC-FY; 73030-TC-LT-FY; 80053; 84484; 85025; 85610; 93005; 93010; 99285-25

== ENCOUNTER 2023-06-30 16:25 | Observation (INO) | payer OTHER ==
[2023-06-30] MEDS: SODIUM CHLORIDE 1,000 ML IV SCH (17:26)
[2023-06-30 17:37] LABS: BASO % 0.7 % (0-2.0); EOS % 1.8 % (0-4.5); HEMATOCRIT 41.7 % (32.4-45.2); HEMOGLOBIN 14.5 GM/dL (10.7-15.3); LYMPH % 38.8 % (8-40); MCH 29.5 pg (25.7-33.7); MCHC 34.7 g/dl (32.0-36.0); MEAN PLT VOLUME 8.2 fl (7.5-11.1); MONO % 5.5 % (3.8-10.2); NEUT % 53.2 % (42.8-82.8); PLATELET COUNT 342 10^3/uL (134-434); RDW 13.8 % (11.6-15.6); WHITE BLOOD COUNT 8.3 K/mm3 (4.0-10.0)
[2023-06-30 17:39] LABS: PROTHROMBIN TIME (PATIENT) 11.6 SEC (9.7-13.0)
[2023-06-30 17:41] LABS: ACTIVATED PTT 32.7 SECONDS (25.2-36.5)
[2023-06-30 17:53] VITALS: BMI 37.1
[2023-06-30 17:53] LABS: POTASSIUM 3.7 mmol/L (3.5-5.1)
[2023-06-30 17:57] LABS: CALCIUM 9.2 mg/dL (8.5-10.1)
[2023-06-30 17:58] LABS: ALBUMIN 3.6 g/dl (3.4-5.0)
[2023-06-30 17:59] LABS: BLOOD UREA NITROGEN 11.4 mg/dL (7-18)
[2023-06-30 18:01] LABS: CREATININE 0.8 mg/dL (0.55-1.3)
[2023-06-30 18:04] LABS: BILIRUBIN,TOTAL 0.6 mg/dL (0.2-1)
[2023-06-30] MEDS ORDERED: ACETAMINOPHEN 325 MG TABLET (FP) PO ONE ×2 (18:35→23:03)
[2023-06-30] MEDS ORDERED: ACETAMINOPHEN 325 MG TABLET (FP) ONE (18:36)
[2023-06-30] MEDS ORDERED: ASPIRIN 81 MG CHEWABLE TABLETS PO ONE (21:17)
[2023-06-30] MEDS ORDERED: ASPIRIN 81 MG CHEWABLE TABLETS ONE (21:34)
[2023-06-30] MEDS ORDERED: NICOTINE 21 MG/24 HOURS TOPICAL PATCH ONE (21:34)
[2023-06-30] MEDS: NICOTINE 21 MG/24 HOURS TOPICAL PATCH TD SCH (21:41)
[2023-06-30] MEDS ORDERED: PATIENT'S OWN MEDICATION (NON-FORMULARY) (Oxycodone Hcl/Acetaminophen [Oxycodone-Acetamino PO PRN (23:44)
[2023-06-30] MEDS ORDERED: PATIENT'S OWN MEDICATION (NON-FORMULARY) (Diclofenac Sodium [Voltaren] 100 GM Gel..Gram.) TP PRN (23:44)
[2023-07-01] MEDS ORDERED: ACETAMINOPHEN 325 MG TABLET (FP) ONE (00:41)
[2023-07-01] MEDS ORDERED: oxyCODONE HCL 5 MG TABLET ONE ×2 (00:42→07:24)
[2023-07-01] MEDS ORDERED: ACETAMINOPHEN 325 MG TABLET (FP) PO PRN (00:45)
[2023-07-01] MEDS ORDERED: oxyCODONE HCL 5 MG TABLET PO PRN (00:45)
[2023-07-01] MEDS: oxyCODONE HCL 5 MG TABLET PO PRN ×3 (00:47→18:31)
[2023-07-01] MEDS: ACETAMINOPHEN 325 MG TABLET (FP) PO PRN ×2 (00:48→18:33)
[2023-07-01 08:15] LABS: BASO % 0.5 % (0-2.0); EOS % 1.9 % (0-4.5); HEMATOCRIT 41.6 % (32.4-45.2); HEMOGLOBIN 13.7 GM/dL (10.7-15.3); LYMPH % 45.5 % (8-40); MCHC 32.9 g/dl (32.0-36.0); MEAN CELL VOLUME 88.1 fl (80-96); MEAN PLT VOLUME 7.9 fl (7.5-11.1); MONO % 6.3 % (3.8-10.2); NEUT % 45.8 % (42.8-82.8); PLATELET COUNT 330 10^3/uL (134-434); RBC 4.72 M/mm3 (3.60-5.2); RDW 13.8 % (11.6-15.6); WHITE BLOOD COUNT 8.6 K/mm3 (4.0-10.0)
[2023-07-01 08:25] LABS: POTASSIUM 3.6 mmol/L (3.5-5.1)
[2023-07-01] MEDS ORDERED: amLODIPine BESYLATE 10 MG TABLET (FP) ONE (08:34)
[2023-07-01] MEDS ORDERED: FAMOTIDINE 20 MG TABLET ONE (08:34)
[2023-07-01 08:35] LABS: CALCIUM 8.7 mg/dL (8.5-10.1); CHOLESTEROL 179 mg/dL (50-200)
[2023-07-01] MEDS ORDERED: ENOXAPARIN NA (PORCINE) 40 MG/0.4 ML DISP.SYRIN SQ ONE (08:35)
[2023-07-01] MEDS ORDERED: LORATADINE 10 MG TABLET ONE (08:35)
[2023-07-01] MEDS ORDERED: MULTIVITAMINS (DAILY MVI) TABLET (FP) ONE (08:35)
[2023-07-01] MEDS ORDERED: NICOTINE 21 MG/24 HOURS TOPICAL PATCH ONE (08:35)
[2023-07-01] MEDS ORDERED: ASPIRIN 81 MG CHEWABLE TABLETS ONE (08:35)
[2023-07-01 08:36] LABS: ALBUMIN 3.4 g/dl (3.4-5.0); BLOOD UREA NITROGEN 14.5 mg/dL (7-18); MAGNESIUM 1.9 mg/dL (1.8-2.4)
[2023-07-01 08:37] LABS: LDL CHOLESTEROL (ONLY SJRH) 101 mg/dL (5-100)
[2023-07-01 08:39] LABS: CREATININE 0.7 mg/dL (0.55-1.3); HDL CHOLESTEROL 51 mg/dL (40-60); PHOSPHOROUS 3.9 mg/dL (2.5-4.9)
[2023-07-01 08:40] LABS: BILIRUBIN,TOTAL 0.4 mg/dL (0.2-1); TOT PROT 6.7 g/dl (6.4-8.2)
[2023-07-01] MEDS ORDERED: DICLOFENAC SODIUM TP PRN (08:49)
[2023-07-01] MEDS ORDERED: PATIENT'S OWN MEDICATION (NON-FORMULARY) (Naloxegol Oxalate [Movantik] 25 MG Tablet) PO SCH (10:00)
[2023-07-01] MEDS ORDERED: ERGOCALCIFEROL (VIT D2) 50,000 UNIT (1.25 MG) CAPSULE PO SCH (10:00)
[2023-07-01] MEDS: LORATADINE 10 MG TABLET PO SCH (10:34)
[2023-07-01] MEDS: ASPIRIN 81 MG CHEWABLE TABLETS PO SCH (10:34)
[2023-07-01] MEDS: NICOTINE 21 MG/24 HOURS TOPICAL PATCH TD SCH (10:35)
[2023-07-01] MEDS: amLODIPine BESYLATE 10 MG TABLET (FP) PO SCH (10:35)
[2023-07-01] MEDS: CYANOCOBALAMIN 1,000 MCG TABLET (FP) PO SCH (10:35)
[2023-07-01] MEDS: FAMOTIDINE 40 MG TABLET PO SCH (10:35)
[2023-07-01] MEDS: MULTIVITAMINS (DAILY MVI) TABLET (FP) PO SCH (10:35)
[2023-07-01] MEDS: BISACODYL 5 MG TABLET.DR (FP) PO SCH (10:35)
[2023-07-01] MEDS: ENOXAPARIN NA (PORCINE) 40 MG/0.4 ML DISP.SYRIN SQ SCH (10:35)
[2023-07-01 16:22] LABS: EPI CELLS 28 /uL (0-25.1); HYALINE CASTS 1 /uL (0-3.1); PH,URINE 5.5 (5.0-8.0); URINE APPEARANCE CLEAR; URINE BACTERIA 42 /uL (0-1359); URINE BILIRUBIN NEGATIVE (NEGATIVE); URINE COLOR YELLOW; URINE GLUCOSE (UA) NEGATIVE (NEGATIVE); URINE KETONE NEGATIVE (NEGATIVE); URINE LEUK ESTERASE TRACE (NEGATIVE); URINE NITRITE NEGATIVE (NEGATIVE); URINE PROTEIN NEGATIVE (NEGATIVE); URINE RBC 18 /uL (0-23.9); URINE UROBILINOGEN 0.2 mg/dL (0.2-1.0); URINE WBC 57 /uL (0-25.8)
[2023-07-01] MEDS: ATORVASTATIN CA 20 MG TABLET (FP) PO SCH (21:37)
[2023-07-01] MEDS: SODIUM CHLORIDE 1,000 ML IV SCH (23:24)
[2023-07-01] MEDS: PRAMIPEXOLE DIHYDROCHLORIDE 0.25 MG TABLET PO SCH (23:29)
[2023-07-01] MEDS: TOPIRAMATE 25 MG TABLET PO SCH (23:29)
[2023-07-02] MEDS: oxyCODONE HCL 5 MG TABLET PO PRN ×2 (08:00→18:33)
[2023-07-02] MEDS: ACETAMINOPHEN 325 MG TABLET (FP) PO PRN ×2 (08:02→18:34)
[2023-07-02] MEDS: TOPIRAMATE 25 MG TABLET PO SCH ×2 (09:37→21:48)
[2023-07-02] MEDS: FAMOTIDINE 40 MG TABLET PO SCH (09:37)
[2023-07-02] MEDS: LORATADINE 10 MG TABLET PO SCH (09:37)
[2023-07-02] MEDS: ASPIRIN 81 MG CHEWABLE TABLETS PO SCH (09:38)
[2023-07-02] MEDS: CYANOCOBALAMIN 1,000 MCG TABLET (FP) PO SCH (09:38)
[2023-07-02] MEDS: ENOXAPARIN NA (PORCINE) 40 MG/0.4 ML DISP.SYRIN SQ SCH (09:38)
[2023-07-02] MEDS: PRAMIPEXOLE DIHYDROCHLORIDE 0.25 MG TABLET PO SCH ×2 (09:38→21:48)
[2023-07-02] MEDS: BISACODYL 5 MG TABLET.DR (FP) PO SCH (09:38)
[2023-07-02] MEDS: amLODIPine BESYLATE 10 MG TABLET (FP) PO SCH (09:38)
[2023-07-02] MEDS: NICOTINE 21 MG/24 HOURS TOPICAL PATCH TD SCH (09:38)
[2023-07-02] MEDS: MULTIVITAMINS (DAILY MVI) TABLET (FP) PO SCH (10:06)
[2023-07-02] MEDS: SODIUM CHLORIDE 1,000 ML IV SCH (21:46)
[2023-07-02] MEDS: ATORVASTATIN CA 20 MG TABLET (FP) PO SCH (21:48)
[2023-07-03 05:51] VITALS: RESP 18
[2023-07-03] MEDS: CYANOCOBALAMIN 1,000 MCG TABLET (FP) PO SCH (09:45)
[2023-07-03] MEDS: MULTIVITAMINS (DAILY MVI) TABLET (FP) PO SCH (09:45)
[2023-07-03] MEDS: LORATADINE 10 MG TABLET PO SCH (09:45)
[2023-07-03] MEDS: FAMOTIDINE 40 MG TABLET PO SCH (09:45)
[2023-07-03] MEDS: ENOXAPARIN NA (PORCINE) 40 MG/0.4 ML DISP.SYRIN SQ SCH (09:45)
[2023-07-03] MEDS: amLODIPine BESYLATE 10 MG TABLET (FP) PO SCH (09:45)
[2023-07-03] MEDS: ASPIRIN 81 MG CHEWABLE TABLETS PO SCH (09:45)
[2023-07-03] MEDS: TOPIRAMATE 25 MG TABLET PO SCH (09:45)
[2023-07-03] MEDS: NICOTINE 21 MG/24 HOURS TOPICAL PATCH TD SCH (09:45)
[2023-07-03] MEDS: PRAMIPEXOLE DIHYDROCHLORIDE 0.25 MG TABLET PO SCH (09:45)
[2023-07-03] MEDS: BISACODYL 5 MG TABLET.DR (FP) PO SCH (09:47)
[2023-07-03 09:53] VITALS: BP 120/58; PULSE 61; TEMP 98
[2023-07-03] MEDS: oxyCODONE HCL 5 MG TABLET PO PRN (11:04)
[2023-07-03] MEDS: ACETAMINOPHEN 325 MG TABLET (FP) PO PRN (11:05)
[2023-07-03] MEDS: LIPASE/PROTEASE/AMYLASE 36,000 UNIT CAPSULE PO SCH ×2 (13:26→17:49)
== END 2023-07-03 18:57 | disposition home or self-care (01) ==
LOC: JER 16:25 → JERBED 18:17 → J4W 07-01 17:25
PROVIDERS: ADMIT Internal Medicine; ATTEND Internal Medicine
PROC: 3E023GC Introduction of Other Therapeutic Substance into Muscle, Percutaneous Approach (ICD-10-PCS; principal; 2023-06-30)
DX: G45.9 Transient cerebral ischemic attack, unspecified (principal); I10 Essential (primary) hypertension; J44.9 Chronic obstructive pulmonary disease, unspecified; K21.9 Gastro-esophageal reflux disease without esophagitis; E78.5 Hyperlipidemia, unspecified; R42 Dizziness and giddiness; H54.40 Blindness, one eye, unspecified eye; M25.511 Pain in right shoulder; F17.200 Nicotine dependence, unspecified, uncomplicated; Z90.49 Acquired absence of other specified parts of digestive tract; Z29.89 Encounter for other specified prophylactic measures; Z88.8 Allergy status to other drugs, medicaments and biological substances
CPT/HCPCS: 36415; 70450-TC; 70551-TC; 73030-TC-RT-FY; 80053; 80061; 81003; 82550; 82553; 82962; 83036; 83735; 84100; 84484; 85025; 85610; 85730; 86850; 86900; 86901; 93005; 93010; 93306-TC; 93880-TC; 94761; 96372; 97116-GP; 97161-GP; 99285-25; G0378